=== PATIENT | male | born 1985 | race American Indian/Alaskan Native ===

== ENCOUNTER 2018-09-05 12:32 | Emergency (ER) | payer OTHER ==
[2018-09-05 12:46] VITALS: BP 162/95
--- NOTE | 2018-09-05 12:46 | Event Note ---
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 Further treatment and workup at subsequent clinical providers discretion. Patient/guardian urged not to elope from the ED as their condition may be serious if not clinically assessed and managed. Initial orders include: CBC, BMP
--- NOTE | 2018-09-05 17:24 | Emergency Department Report ---
ED General Adult HPI - General Chief complaint: Weakness Stated complaint: GENERAL WEAKNESS Time Seen by Provider: 09/05/18 12:43 Source: patient Mode of arrival: Ambulatory Limitations: No Limitations - History of Present Illness Initial comments: 33-year-old male presents to the emergency room for generalized weakness hyperventilating while work early today. Patient states symptoms began when he felt overwhelmed as he was asked to cover someone else's shift at [employer]. Patient states that his signs and symptoms have improved somewhat but still fee ls nervous. Patient reports at that time he had tingling in both hands and legs. Patient has no past medical history takes no medications on a daily basis has no known drug allergies. Patient does not have a primary care provider. Patient refuses labs to be done here at the hospital. He reports that he was [place] [facility] [place] [address]. -: This morning - Related Data Allergies Allergy/AdvReac Type Severity Reaction Status Date / Time No Known Allergies Allergy Unverified 09/05/18 12:38 ED Review of Systems ROS: Stated complaint: GENERAL WEAKNESS Other details as noted in HPI Comment: All other systems reviewed and negative ED Past Medical Hx - Past Medical History Previous Medical History?: No - Surgical History Past Surgical History?: No - Social History Smoking Status: Unknown if ever smoked Substance Use Type: None ED Physical Exam - General Limitations: No Limitations General appearance: alert, in no apparent distress - Head Head exam: Present: atraumatic, normocephalic - Eye Eye exam: Present: normal appearance - ENT ENT exam: Present: mucous membranes moist - Neck Neck exam: Present: normal inspection - Cardiovascular Cardiovascular Exam: Present: regular rate, normal rhythm. Absent: systolic murmur, diastolic murmur, rubs, gallop - Neurological Exam Neurological exam: Present: alert, oriented X3, normal gait - Psychiatric Psychiatric exam: Present: anxious - Skin Skin exam: Present: warm, dry, intact, normal color. Absent: rash ED Course Vital Signs 09/05/18 12:43 Temperature 98.7 F Pulse Rate 103 H Respiratory 20 Rate Blood Pressure 162/95 O2 Sat by Pulse 100 Oximetry ED Medical Decision Making - Medical Decision Making 33-year-old man comes in with anxiety symptoms. Patient refuses labs. I discussed the patient to follow up at [facility] which is what was referred here by his job. He verbalized understanding. Critical care attestation.: If time is entered above; I have spent that time in minutes in the direct care of this critically ill patient, excluding procedure time. ED Disposition Clinical Impression: Anxiety as acute reaction to exceptional stress Disposition: DC-01 TO HOME OR SELFCARE Is pt being admited?: No Does the pt Need Aspirin: No Condition: Stable Instructions: Anxiety (ED) Additional Instructions: Follow-up with [facility]. Referrals: LIONEL JAMES MD [Primary Care Provider] - 3-5 Days Forms: Work/School Release Form(ED)
== END 2018-09-05 17:32 | disposition home or self-care (01) ==
LOC: ED 12:32
DX: F41.1 Generalized anxiety disorder (principal); F43.0 Acute stress reaction
CPT/HCPCS: 99282